=== PATIENT | female | born 1935 | race Caucasian/White ===

== ENCOUNTER 2018-10-08 18:22 | Inpatient (IN) | payer MEDICARE, MEDICAID ==
--- NOTE | ~2018-10-08 | PR ---
[place], [place] PROGRESS NOTE NAME: SEA MONTERO UNIT #: [id number] ROOM: 314 DOCTOR: WALLY SMITH MD BIRTHDATE: [birth year] DOS: 10/14/2018 INTERVAL NOTE CHIEF COMPLAINT: The patient smiled at me, but talked nonsensically." SUMMARY OF THE VISIT: The patient was attempted to be interviewed as she was eating her breakfast. She was eating without assistance and had most if not all of her breakfast gone. As I approached, she smiled readily. I did ask her, if she was feeling better and she continued to smile, but her response was aphasic and nonsensical. She did not appear to be in distress and if anything seemed happy and bright. MENTAL STATUS: She is alert and oriented to self, unclear place or time. Mood does seem to be more euthymic. Affect is more appropriate. There is no leona or hypomania noted. There are no overt psychotic symptoms. It is difficult to fully test memory because of her communication deficits. PLAN: I will go ahead and renew her p.r.n. Ativan, should she require intervention. I will increase her Namenda from 10 mg a day to 15 mg a day. Monitor and support, engage in individual and penaloza milieu activity, returning to the least restrictive environment when psychiatrically stable. WALLY SMITH MD CM:PNTRANS [id number] WALLY SMITH MD 10/14/18 1231 interface
--- NOTE | ~2018-10-08 | PR ---
[place], [place] PROGRESS NOTE NAME: SEA MONTERO UNIT #: [id number] ROOM: 314 DOCTOR: WALLY SMITH MD BIRTHDATE: [birth year] DOS: 10/10/2018 INTERVAL NOTE CHIEF COMPLAINT: The patient talked gibberish. SUMMARY OF THE VISIT: The patient was attempted to be interviewed as she was sitting in the dining area, eating breakfast. She did make eye contact and did attempt to engage in conversation, but most of that was nonsensical. There was no agitation or aggression. Nurses do note that the patient did have some periods of excessive verbalization that made no sense yesterday, almost clang like, but it was repetitive, yelling out of colors. MENTAL STATUS: She is alert and oriented to self, doubtful place and certainly not time. For the most part, her responses were nonsensical in nature. They were short and simple. There was no spontaneity and for the most part, she made little to no sense; however, there was no aggression or hostility noted. She does process conversation slowly and short term memory remains problematic. PLAN: I do view her verbalizations as somewhat pseudobulbar like and will go ahead and start her on Nuedexta 20-10 one daily. I will monitor for risks and benefits, continue to engage in individual and penaloza milieu activity, returning then to the least restrictive environment when psychiatrically stable. WALLY SMITH MD CM:PNTRANS [phone] WALLY SMITH MD 10/10/18 2340 interface
--- NOTE | ~2018-10-08 | WRIGHTHP ---
[place], [place] PATIENT HISTORY AND PHYSICAL EXAM NAME: SEA MONTERO UNIT #: [id number] ROOM: 314 DOCTOR: WALLY SMITH MD BIRTHDATE: [birth year] DOS: 10/09/2018 INITIAL PSYCHIATRIC EVALUATION CHIEF COMPLAINT: "Morning." HISTORY OF PRESENT ILLNESS: This is an 83-year-old white female who is a resident of the [facility] in [place]. The patient was sent here after repeatedly attacking staff, refusing meds and talking nonsensically. The patient has been very combative and very resistive to care, putting herself and others at substantial risk of harm. Attempts to redo her medications well at the [facility] have been ineffective and her behavior continues to spiral out of control necessitating an inpatient stabilization. PAST MEDICAL HISTORY: Remarkable for aphasia, coronary artery disease, dementia, displaced fracture of the right femur, hemorrhoid, CVA, myocardial infarction, transient ischemic attacks, hyperlipidemia, lactose intolerance, and neoplasm of the left breast. SOCIAL HISTORY: She does not smoke or use illicit drugs or drink alcohol. ALLERGIES: She does list allergies to being LACTOSE INTOLERANT. STRENGTHS: Ambulatory. WEAKNESSES: Cognitive decline, poor coping skills. MENTAL STATUS EXAMINATION: This morning was limited by her sedation. I did get her to open her eyes as I called her name repeatedly and touched her gently on the shoulder. She did mouth the word morning, beyond that she went back to sleep. ADMITTING DIAGNOSIS: Intermittent explosive disorder. PLAN: I have started her on Exelon patch 4.6 mg a day and Namenda 5 mg a day to impact positively on ADL maintenance, behavior and cognition. I also adjusted her Depakote level to 250 mg t.i.d. as her valproic acid level was very subtherapeutic at 4.4, reflecting the low dose that was given to her as well as her episodic noncompliance. We will engage in individual and penaloza milieu activity, returning to the least restrictive environment when psychiatrically stable. [place], [place] PATIENT HISTORY AND PHYSICAL EXAM NAME: SEA MONTERO UNIT #: [id number] ROOM: 314 DOCTOR: WALLY SMITH MD BIRTHDATE: [birth year] WALLY SMITH MD CM:HISPHYS:PATIENT HISTORY AND PHYSICAL EXAMINATION [phone] WALLY SMITH MD 10/09/18 1013 interface
--- NOTE | ~2018-10-08 | DS ---
[place], [place] DISCHARGE SUMMARY NAME: SEA MONTERO UNIT #: [id number] ROOM: 311 DOCTOR: WALLY SMITH MD BIRTHDATE: [birth year] DOS: 10/17/2018 CHIEF COMPLAINT: "Morning." HISTORY OF PRESENT ILLNESS: This is an 83-year-old white female who is a resident of the [facility] in [place], [place]. The patient was sent here to the [facility] after repeatedly attacking staff, refusing meds and talking nonsensically. She has been very combative and very resistive to care, putting both herself and others at substantial risk for harm. Attempts to redo her medications while at the [facility] have been ineffective and her behaviors continued to spiral out of control and necessitating an inpatient stabilization. SUMMARY OF HOSPITAL COURSE: The patient was started on Exelon patch 4.6 mg a day and Namenda 5 mg a day to impact positively on ADL maintenance, behavior and cognition. Her Depakote dose was increased to 250 mg t.i.d. as her initial valproic acid level was very subtherapeutic at 4.4. During the course of her stay, it became very evident that the patient had some uncontrollable verbalizations and excessive emotionality consistent with pseudobulbar affect. Nuedexta 20-10 was started and subsequently increased to twice daily with excellent results. With the Exelon increasing gradually then to its maximum dose during her stay at 13.3 mg a day and Namenda being brought up to a total dose of 15 mg a day, the patient substantially improved. She no longer was verbally or physically aggressive towards staff or others. She was pleasant and cooperative. She engaged readily in attempts to do her ADLs and eat. She did not exhibit sedation, somnolence, extrapyramidal symptoms or tardive dyskinesia and seems stable and ready to return back to the [facility]. MENTAL STATUS AT DISCHARGE: The patient is alert and oriented to self, unclear place or time. The patient is still somewhat dysphasic and has a hard time of communicating her needs, but pleasantly smiled upon approached and voiced no complaints when I gave her simple responses. There was no symptom suggestive of leona or hypomania. There were no gross psychotic symptoms. She does process at times slowly and short term memory remains problematic. DIAGNOSES AT DISCHARGE: Intermittent explosive disorder, Alzheimer's dementia and pseudobulbar affect. PLAN: All of her prescriptions have been e-scribed to [facility]. The patient is psychiatrically and medically stable and will return to the [facility]. [place], [place] DISCHARGE SUMMARY NAME: SEA MONTERO UNIT #: [id number] ROOM: 311 DOCTOR: WALLY SMITH MD BIRTHDATE: [birth year] WALLY SMITH MD CM:LUCILLE [phone] WALLY SMITH MD 10/17/18 1054 interface
[2018-10-08] MEDS ORDERED: CARDIZEM LA180 MG PO (18:24)
[2018-10-08] MEDS ORDERED: B121000 MCG/1 IM (18:26)
[2018-10-08] MEDS ORDERED: LEVEMIR FL100 UNIT/1 SQ (18:26)
[2018-10-08] MEDS ORDERED: PEPCID40 MG PO (18:27)
[2018-10-08] MEDS ORDERED: Lopressor25 MG PO (18:27)
[2018-10-08] MEDS ORDERED: QUESTRAN POWDE378 GM PO (18:30)
[2018-10-08] MEDS ORDERED: XARE15TA PO (18:31)
[2018-10-08] MEDS ORDERED: ASCORBIC ACID500 M2 PO (18:31)
[2018-10-08] MEDS ORDERED: FLORASTOR250 MG PO (18:32)
[2018-10-08] MEDS ORDERED: KEPPRA500 MG PO (18:32)
[2018-10-08] MEDS ORDERED: MAGOX 400400 MG PO (18:32)
[2018-10-08] MEDS ORDERED: MULTIVITAMINS1 EAC5 PO (18:33)
[2018-10-08] MEDS ORDERED: CALCIUM500 M1 PO (18:34)
[2018-10-08] MEDS ORDERED: GERI MUCIL PO (18:36)
[2018-10-08] MEDS ORDERED: POTASSIUM CHLO20 ME3 PO (18:37)
[2018-10-08] MEDS ORDERED: SODIUM BICARBO650 MG PO (18:38)
[2018-10-08] MEDS ORDERED: TYLENOL325 M1 PO ×2 (18:40→18:42)
[2018-10-08] MEDS ORDERED: LOMOTIL 2.5-0.1 EACH PO (18:42)
[2018-10-08] MEDS ORDERED: ATIVAN0.5 MG PO (18:43)
[2018-10-08] MEDS ORDERED: IMODIUM A-D2 M2 PO (18:44)
[2018-10-08] MEDS ORDERED: [UNRECOGNIZED DRUG - OTHER] R (18:44)
[2018-10-08 21:40] VITALS: BP 118/66
--- NOTE | 2018-10-08 21:40 | NUR ---
SEA MONTERO a 83 year old F admitted via stretcher from the ADMITTING as a voluntary admission. Arrived on unit at 2140PM. ALLERGIES: LACTOSE. Vital signs are: 97.9-81-17 118/66. THE POA--HER GAVE VERBAL PERMISSION FOR ADMISSION AND ALL following forms with stated understanding: Authorization For The Release of Medical Information, Clothing List, Consent to Voluntary Admission and Hospitalization, Consent and Release Forms/Receipt of Rights, Acknowledgement of Advance Directive Information, Behavioral Health Consent Form, and Informed Consent of Medications. Admitted under the services of Dr. LUIS BETHEA,[employer]. A search was conducted and hazardous articles were removed. Client was oriented to the unit. CLIENT AGGITATED UPON ARRIVAL, SPEECH NONSENSICAL, UNABLE TO ANSWER ANY QUESTIONS FOR ADMISSION. YELLING OUT AT STAFF. TAKEN TO SHOWER HYGIENE CARE CLIENT WAS BROUGHT IN FROM THE [facility] VIA FIRE RESCUE CLIENT INCONTINENTOF LIQUID STOOL. ENTIRE PERINIUM, AND BUTTOCKS FIRE ENGINE RED. COMBATIVE WITH ALL HANDS ON CARE. TONY STARKS
--- NOTE | 2018-10-08 21:50 | NUR ---
WHILE DOING SKIN ASSESSMENT, CLIENT HITTING, KICKING AND TRYING TO BITE STAFF. UNABLE TO OBTAIN PHOTOGRAPHS.
--- NOTE | 2018-10-08 21:58 | NUR ---
DR WRIGHT NOTIFIED OF MEDICAL CONSULT & MED REQ READY FOR REVIEW.
--- NOTE | 2018-10-08 22:06 | NUR ---
REFUSED PM MEDICATION INCLUDING PO ATIVAN. PREPPING IM ATIVAN TO CALM CLIENT FROM KICKING, HITTING STAFF CONTINUES TO REFUSE ANY PART OF ASSESSMENT PROCESS
--- NOTE | 2018-10-09 00:03 | NUR ---
RESTING BETTER. AWAITING MEDICAL TO ORDERS CLIENTS HOME MEDICATIONS.
--- NOTE | 2018-10-09 02:40 | NUR ---
SEA MONTERO [id number] Please refer to the physician's history and physical for past medical history, comorbid conditions, and allergies. Diagnosis: INTERMITTENT EXPLOSIVE DISORDER Reed Score: , WOUND DESCRIPTIONS: Wound Number: 1 Patient has several partial thickness areas noted to periarea and buttocks. Light amount of serosanguineous drainage. No odor noted. Surrounding skin is red and blanchable at time of assessment. Patient is incontient of urine and feces at time of assessment. Pericare provided. Patient is unable to state how these areas occured. Surface the patient is resting on: Proform SKIN PREVENTION RECOMMENDATION: 1. Pressure redistribution support surface as appropriate 2. Elevate heels 3. Remove boots/TEDS every shift and reapply 4. Head of bed 30 degrees as tolerated 5. Assess nutrition and hydration 6. Manage moisture 7. Avoid the use of containment devices while in bed 8. Use absorptive products on surfaces limit layers of linens on bed 9. Turn and reposition every 1-2 hours in bed and every 1 hour in chair as tolerated 10. Weight shifts every 15 minutes while up in chair 11. Offloading with pillows or device to keep heels elevated off bed 12. Monitor skin at least every shift 13. Inspect under medical devices twice a day WOUND TREATMENT RECOMMENDATIONS: Cleanse periarea and buttocks with soap and water and apply calazime every shift and prn for soiling. Wheelchair cushion when OOB.
--- NOTE | 2018-10-09 03:05 | NUR ---
NOTIFIED DR WRIGHT THAT ANSWERED PHONE CONCERNS THAT CLIENT TAKES IMMODIUM 5 TIMES A DAY WHILE AWAKE FOR CHRONIC DIARRHEA AND NEEDING WOUND CARE ORDERS FOR PERINEUM THAT IS EXCORIATED WITH FEW BLEEDING SPOTS.
--- NOTE | 2018-10-09 03:40 | NUR ---
24 HR chart check completed.
--- NOTE | 2018-10-09 05:49 | NUR ---
SLEPT POOR PAST 2330PM. SLEPT <5HRS
--- NOTE | 2018-10-09 06:45 | NUR ---
SWINGING AT STAFF. BIT SPOON AND SPIT MEDICATIONS OUT
[2018-10-09 07:28] LABS: BASO # 0.1 10*3/uL (0.0-0.1); BASO % 1.4 % (0.0-1.0); EOS # 0.4 10*3/uL (0.0-0.4); EOS % 4.8 % (1.0-4.0); HEMATOCRIT 36.9 % (37.0-47.0); HEMOGLOBIN 10.7 g/dl (12.0-16.0); LYMPH # 2.3 10*3/uL (1.3-4.4); LYMPH % 29.7 % (27.0-41.0); MEAN CELL VOLUME 89.1 fl (81.0-99.0); MEAN CORPUSCULAR HGB 25.8 pg (27.0-31.0); MEAN PLATELET VOLUME 9.4 fl (9.6-12.3); MONO # 0.8 10*3/uL (0.1-1.0); MONO % 10.2 % (3.0-9.0); NEUT # 4.1 10*3/uL (2.3-7.9); NEUT % 53.6 % (47.0-73.0); PLATELET COUNT AUTOMATED 390 10*3/uL (130-400); RED BLOOD COUNT 4.14 10*6/uL (4.10-5.10); RED CELL DISTRI WIDTH 15.9 % (0-14.5); WHITE BLOOD COUNT 7.6 10*3/uL (4.8-10.8)
[2018-10-09 07:56] LABS: ALBUMIN 2.4 gm/dl (3.1-4.5); ALKALINE PHOSPHATASE 105 U/L (45-117); BUN 22 mg/dl (7-24); CHLORIDE 111 mmol/L (98-107); CHOLESTEROL 103 mg/dL (<200); CREATININE 0.77 mg/dL (0.55-1.02); HDL CHOLESTEROL 40 mg/dl (40-60); LDL CHOLESTEROL 17 mg/dL (9-159); POTASSIUM 4.2 mmol/L (3.5-5.1); SGOT/AST 21 IU/L (3-35); SGPT/ALT 20 U/L (12-78); SODIUM 141 mmol/L (136-145); TRIGLYCERIDES 228 mg/dl (<150); VLDL CHOLESTEROL 46 mg/dL (6-40)
--- NOTE | 2018-10-09 08:00 | NUR ---
Treatment Plan meeting with Dr. Wheeler, RN, AT, SW and Traveling Electrician. Plan for discharge next week. Pt. is a current resident of [facility]. Will reach out to facility today to discuss discharge Planning.
[2018-10-09 08:02] VITALS: BP 123/65
[2018-10-09 08:05] LABS: INTERNATIONAL NORM RATIO 4.8 (2.0-3.5)
[2018-10-09 08:06] LABS: THYROID STIM HORMONE (HS) 0.885 uIU/ml (0.358-4.75); VALPROIC ACID (DEPAKENE) 4.4 ug/ml (50-100)
--- NOTE | 2018-10-09 08:08 | NUR ---
LAB CALLED CRITICAL INR LEVEL, MADE DR. BUCKLEY AWARE. STATES "OK".
[2018-10-09 08:45] LABS: VITAMIN D, 25-HYDROXY 11.1 ng/mL (30-100)
--- NOTE | 2018-10-09 09:40 | NUR ---
Treatment Plan meeting with Dr. Wheeler, RN, AT, SW and Child Development Consultant. Plan for discharge next week. Pt. came to [facility] from [facility]. Will reach out to facility today to discuss discharge Planning.
--- NOTE | 2018-10-09 09:47 | NUR ---
Clinical Updates faxed to [facility] [place].
--- NOTE | 2018-10-09 09:51 | NUR ---
Dr. Lopez notified of wound care recommendations.
--- NOTE | 2018-10-09 10:04 | NUR ---
Spoke with Tracy, Supply Chain Program Manager at [facility]. Pt. is Tar Worker Care at facility and is a Bed Hold. Pt. will return to the [facility] at discharge.
--- NOTE | 2018-10-09 11:46 | NUR ---
AM GROUP/MUSIC AND GAMES PT WAS PRESENT FOR GROUP AND BEGAN YELLING OUT, "NURSE!" AND "HELP!" I CAME TO PT AND SHE MISTOOK ME FOR A NURSE AND BEGAN SPEAKING NONSENSE. PT WAS TAKEN TO NURSES STATION FOR NURSE TO ADDRESS PT ISSUE. PT WAS RETURNED TO THE GROUP AND BEGAN YELLING OUT THE NAMES OF COLORS, "WHITE, BLUE, YELLOW..." PT THEN DOZED OFF.
--- NOTE | 2018-10-09 11:59 | NUR ---
Attempted to meet with pt this AM but pt was sleeping soundly.
--- NOTE | 2018-10-09 13:33 | NUR ---
PT CONFUSED, RESTLESS. PT YELLING OUT, SPEECH IS NONSENSICAL, PT HAS OCCASIONAL OUTBURSTS. PT REDIRECTED, PROVIDED WITH ACTIVITY AND LOW STIMULATION ENVIRONMENT TO REDUCE IRRITABILITY REDIRECTION EFFECTIVE FOR BRIEF TIME. PT IS NONSENSICAL, VERBAL RESPONSES NOT OFTEN APPROPRIATE TO CONTENT, PT IS ABLE TO FOLLOW SIMPLE VERBAL CUES. ST/LT MEMORY DEFICITS APPARENT. PT IS ORIENTED TO PERSON ONLY. MOOD IS LABILE. PT ENCOURAGED TO REST IN CHAIR IN QUIET ROOM. NO OVERT S/S OF ATTENDING TO INTERNAL STIMULI. WILL CONTINUE TO REORIENT PT TO PLACE, TIME, AND SITUATION. WILL REDIRECT NEEDED. WILL PROVIDE 1:1 FOR EMOTIONAL SUPPORT NEEDED. Q 15 MIN MONITORING PER POLICY FOR SAFETY. WILL MAINTAIN FALLING STAR PROGRAM FOR PT SAFETY.
--- NOTE | 2018-10-09 15:18 | NUR ---
PHYSICAL THERAPY Patient evaluated on 3, full evaluation to follow. Continue with PT as per plan of care with fall, unit three, mod (A) x 2 and acute debility precautions. Return to nursing home care as prior. PAtient is high complexity via chart review, tests and evaluation: 04451. Thank you for this referral. Carolann Belcher,PT
--- NOTE | 2018-10-09 15:23 | NUR ---
Occupational Therapy evaluation completed on 3 with full evaluation. Precautions include fall risk,chair,bed alarm,impaired cognition, +2 transfer assist, assist with all ADls,aphasia,high complexity level 95170 via testing , evaluation and chart review. Recommend OT per pOC and return to LTC upon d/c. Thank you for this referral. Rosita Flores OTR/l
--- NOTE | 2018-10-09 15:47 | NUR ---
PM GROUP/[employer] PT IS UNABLE TO ATTEND GROUP THERAPY AT THIS TIME DUE TO COGNITIVE IMPAIRMENT AND HIGH LEVEL OF CONFUSION
[2018-10-09 17:34] LABS: BILIRUBIN NEGATIVE (NEGATIVE); BLOOD 2+ (NEGATIVE); CLARITY SL CLOUDY (CLEAR); COLOR YELLOW (YELLOW); GLUCOSE NEGATIVE (NEGATIVE); KETONE NEGATIVE (NEGATIVE); LEUKO ESTERASE 2+ (NEGATIVE); NITRITE NEGATIVE (NEGATIVE); PH 5.5 (5.0-9.0); SPECIFIC GRAVITY 1.025 (1.005-1.030); UROBILINOGEN 0.2 E.U./dl (0.2-1.0)
[2018-10-09 17:41] LABS: BACTERIA 4+; WBC TNTC wbc/hpf (0-5)
[2018-10-09 17:42] LABS: EPITHELIAL CELLS 16-20; RBC 31-40 rbc/hpf (0-2)
--- NOTE | 2018-10-09 17:58 | NUR ---
DR. BUCKLEY NOTIFIED OF UA RESULTS. STATES HE WILL TAKE A LOOK AT THEM. WITNESSED BY 2ND NURSE
[2018-10-09 19:47] VITALS: BP 122/68
--- NOTE | 2018-10-09 23:00 | NUR ---
P: INCREASED ANXIETY, AGITATION, AEB: YELLING OUT AND SCREAMING NONSENSICAL STATEMENTS, I: REDIRECT, TOILET, SNACK OFFERED, T.V ROOM, LOW STIMULATION, 1:1 R: ALL INEFFECTIVE PT CONTINUED TO YELL OUT AND SCREAM AT STAFF AND OTHERS, PT GIVEN ATIVAN TO ASSIST IN DECREASING ANXIETY P: CONTINUE TO MONITOR 15 MIN CHECKS, PT IS CURRENTLY IN BED RESTING QUIETLY ATIVAN EFFECTIVE. NO SI OR HI NOTED.
--- NOTE | 2018-10-10 03:06 | NUR ---
24 HR chart check completed.
--- NOTE | 2018-10-10 04:50 | NUR ---
Upon discharge recommend patient to follow up for wound care in outpatient setting continue current wound care orders at discharging facility.
--- NOTE | 2018-10-10 07:50 | NUR ---
PHYSICAL THERAPY Patient seen this am for therapy visit and was sitting up in activity room Cindy chair upon therapist arrival. OT fast food sales assistant was present for observation only during SPEECH THERAPIST EARLY INTERVENTION visit. Patient was very tired and confused this session, requiring multiple v/c's for encouragement in completing all therapy task. Patient transfered sit to stand MAX A x 2 with use of B UE support at handrail, but was only able to complete single transfer due to quick onset of fatigue. Patient did attempt 2 addititonal transfers, but unable to complete and remained in Cindy chair with lap tray and body alarm under [facility] staff Supervision. Will continue per POC as tolerated, total treatment time 13 minutes. Aly Correia, SPEECH THERAPIST EARLY INTERVENTION
[2018-10-10 07:51] VITALS: BP 133/75
--- NOTE | 2018-10-10 08:00 | NUR ---
Treatment Plan meeting with Dr. Wheeler, RN, AT and Waste/Materials Exchange Specialist. Plan for discharge next week. Pt. will return to the [facility].
--- NOTE | 2018-10-10 08:10 | NUR ---
OT NOTE Pt was seen this A.M. 1:1 for 25 minute OT session with SMALL BATTERY PLATE ASSEMBLER and nursing staff present for observation only. Upon arrival pt was sitting semi reclined in jairon chair in the dining room. Pt identified by name and on wristband due to being unable to understand her speech. Pt was taken out into the hallway where she completed one sit to stand from chair level with maxA X 2 and max verbal prompts for sequencing and following commands. Attempted to complete a second sit to stand and pt became quickly aggitated and would not participate or follow commands. Pt's breakfast tray arrived which she required maxA for set up of tray. Pt was presented with one item at a time (plate and drink) no tray present to avoid distractions. Pt completed self feeding with supervision while managing all food with a fork and drinks with a straw. Pt did present with a R lateral lean throughout self feeding that pt was able to correct with one verbal prompt. Pt was left sitting upright in the jairon chair in the dining room with lap tray in place, body alarm on for safety, and under [facility] staff supervision. Continue with rec D/C plan to return to LTC. SOHA Mcnamara/Ha
--- NOTE | 2018-10-10 11:49 | NUR ---
AM GROUP/EXERCISE AND BRAIN GAMES PT IS UNABLE TO ATTEND OR PARTICIPATE IN GROUP AT THIS TIME DUE TO COGNITIVE IMPAIRMENT AND YELLING OUT A DISRUPTION TO PEERS.
--- NOTE | 2018-10-10 13:20 | NUR ---
SPOKE WITH DR. BUCKLEY AT [phone] RE: PT PT/INR AND UA GOMEZ RESULTS NO FURTHER ORDERS AT THIS TIME.
--- NOTE | 2018-10-10 14:10 | NUR ---
P: PT INCREASINGLY ANXIOUS, AGITATED. PT INTRUSIVE TO MANJINDERI YELLING OUT, CONFUSION AND SHORT TERM/SENIOR CARE MEMORY DEFICITS NOTED. PT REFUSED PART OF AM PO MEDS, SPITTING OUT APPLESACE I: PT ALERT TO PERSON ONLY, CONFUSION AND SHORT TERM MEMORY DEFICITS NOTED. PT RE-ORIENTED TO PLACE AND TIME. PT MED COMPLIANT WITH DIFFICUTY, UNABLE TO PROVIDE MED EDUCATION D/T COGNITION. STAFF PROVIDED EMOTIONAL SUPPORT AND 1:1 FOR PT TO VOICE FEELINGS, PROVIDED LOW STIMULATION ENVIRONMENT FOR PT TO CALM. OFFERED DIVERSIONAL ACTIVITIES SUCH MUSIC AND BABY DOLLS. PT UP TO GERICHAIR D.T UNSTEADY GAIT AND INABILITY TO AMBULATE INDEPENDENTLY. R: PT CONTINUES TO YELL OUT INTERMITTENLY THROUGHOUT THE DAY. P: MONITOR PT BEHAVIORS ON Q15 MIN SAFETY CHECKS, ENCOURAGE MED COMPLIANCE, PROVIDE EMOTIONAL SUPPORT AND 1:l FOR PT TO VOICE FEELINGS, PROVIDE LOW STIMUALTION ENVIRONMENT FOR PT TO CALM.
--- NOTE | 2018-10-10 15:41 | NUR ---
PM GROUP/LEISURE INTERESTS PT IS UNABLE TO ATTEND GROUP THERAPY AT THIS TIME DUE TO COGNITIVE IMPAIRMENT
[2018-10-10 20:00] VITALS: BP 138/72
--- NOTE | 2018-10-11 05:08 | NUR ---
24 HR chart check completed.
--- NOTE | 2018-10-11 07:05 | NUR ---
PHYSICAL THERAPY Patient seen this am for therapy visit and was sitting in activity room Cindy chair upon therapist arrival. OT engineering assistant was present this morning for observation only during MILK POWDER GRINDER visit. Patient required mutltiple verbal / tactile cues to complete all treatment, however demonstrated increased difficulty with focus on task in performing seated B LE therex. Patient not able to follow therapist commands and was AAROM, all planes, x 10 reps each. Patient was also a little agitated with lap tray in front of her and repeatedly kept pushing on it as if to remove. Patient calmed down once therapist removed the tray so patient could complete sit to stand transfer, MAX A x 2, only tolerating < 10 seconds static stand at rail. Patient unable to attempt additional transfers at this time due to therapist inability to redirect patient. Patient remained in Cindy chair with lap tray and body alarm, in activity room, under [facility] staff Supervsion. Will continue per POC as tolerated, total treatment time 12 minutes. Aly Correia, MILK POWDER GRINDER
[2018-10-11 07:35] VITALS: BP 135/69
--- NOTE | 2018-10-11 07:55 | NUR ---
DR CALHOUN ON UNIT TO SEE PATIENT
--- NOTE | 2018-10-11 08:00 | NUR ---
Treatment Plan meeting with Dr. Wheeler, RN, AT, SW and City Bus Driver. Plan for discharge next week. Pt. will return to the [facility].
--- NOTE | 2018-10-11 08:00 | NUR ---
OT NOTE Pt was seen this A.M. 1:1 for 25 minute OT session with nursing staff present for observation only. Upon arrival pt was sitting upright in the jairon chair in the dining room. Pt identified by name and on wristband. Pt was taken out into the hallway where she completed one sit to stand with maxA X 2 and constatn verbal prompts for following commands and attention to task. Pt became aggitated when other stands were atempted. Pt's breakfast tray arrived whcih she required maxA for set up of tray. Pt was given a plate and one drink to avoid distraction. Pt was able to complete self feeding using utensils and managed all drinks with supervision. Pt was left sitting upright in the jairon chair in the dining room with lap tray in place, body alarm on for safety, and under U staff supervision. Continue with rec D/C plan to return to LTC. SOHA Mcnamara/Ha
[2018-10-11 08:32] LABS: INTERNATIONAL NORM RATIO 3.5 (2.0-3.5)
--- NOTE | 2018-10-11 09:35 | NUR ---
SPOKE WITH DR. BUCKLEY AT [phone] RE: PT PT/INR RESULTS, NO FURTHER ORDERS AT THIS TIME.
--- NOTE | 2018-10-11 12:48 | NUR ---
AM GROUP/MUSIC AND LIGHT THERAPY PT IS UNABLE TO PARTICIPATE IN GROUP AT THIS TIME DUE TO COGNITIVE IMPAIRMENT AND HIGH LEVEL OF CONFUSION.
--- NOTE | 2018-10-11 15:48 | NUR ---
PM GROUP/MISTY PT ATTENDED AFTERNOON GROUP BUT IS UNABLE TO PARTICIPATE DUE TO COGNITIVE IMPAIRMENT. PT CONTINUALLY YELLED OUT NONSENSICAL WORDS LIKE, "TERSE", BILLA NOT", ETC
--- NOTE | 2018-10-11 16:23 | NUR ---
Clinical Updates faxed to [facility].
--- NOTE | 2018-10-11 16:41 | NUR ---
P: PT INTRUSIVE TO MILEUI THROUGHOUT THE DAY, YELLING OUT. PT IRRITABLE AND ANXIOUS AT TIMES. PT REFUSED AM PO MEDS I: PROVIDED EMOTIONAL SUPPORT AND 1:1 FOR PT TO VOICE FEELINGS. ENCOURAGED MED COMPLIANCE. PROVIDED LOW STIMUALTION ENVIRONEMNT FOR PT TO CALM, OFFERED BABY DOLL AND MUSIC. PROVIDED ADL CARE R: PT ALERT TO PERSON ONLY, CONFUSION AND SHORT TERM MEMORY DEFICITS NOTED PER PT BASELINE. MED EDUCATION INEFFECTIVE, PT CONTINUED TO REFUSE AM PO MEDS. P: MONITOR PT BEHAVIORS ON Q15 MIN SAFETY CHECKS, ENCOURAGE MED COMPLIANCE, CONTINUE TO OFFER EMOTIONAL SUPPORT AND 1:1 FOR PT TO VOICE FEELINGS.
[2018-10-11 20:00] VITALS: BP 142/74
[2018-10-11 21:06] LABS: LEVETIRACETAM (KEPPRA) 716936 27.1 ug/mL (10.0-40.0)
--- NOTE | 2018-10-12 03:05 | NUR ---
P-YELLING OUT, CONFUSION. PATIENT ALERT WITH CONFUSION. PATIENT WITH SHORT TERM AND LONG MEMORY DEFICITS. PATIENT WITH NO HALLUCINATIONS OR DELUSIONS. PATIENT WITH NO SUICIDAL OR HOMICIDAL IDEATIONS. PATIENT YELLING OUT WITH NONSENSICAL SPEECH. I-REDIRCTION WITH 1:1 THERAPEUTIC INTERVENTIONS AND PRESENT REALITY. EDUCATE AND ENCOURAGE MEDICATION COMPLIANCE R-PATIENT MEDICATION COMPLIANT WITH ENCOURAGEMENT. PATIENT SHOWERED AT HS WITH ASSIST X 2. PATIENT WITH ATTEMPTS TO COMMUNICATE WITH PEERS IN DINING AREA USING OUTBURST OF ONE WORD RESPONSES OF "DOCTOR" "HERPES" "THE BROWN". PATIENT WITH WORD SALAD, MOOD IS LABILE, THOUGHT PROCESS IS TANGENTIAL AND CONFUSED. PATIENT DISRUPTIVE AT TIMES IN DINING AREA AROUND PEERS. P-CONTINUE TO ENCOURGAGE MEDICATION COMPLIANCE, CONTINUE TO PRESENT REALITY, ENCOURAGE GROUP THERAPY WHILE AWAKE
--- NOTE | 2018-10-12 04:00 | NUR ---
24 HR chart check completed.
--- NOTE | 2018-10-12 06:15 | NUR ---
PATIENT SLEPT >6 HOURS OF INTERRUPTED SLEEP THROUGHOUT SHIFT. Q 15 MINUTE CHECKS MAINTAINED
[2018-10-12 07:51] LABS: INTERNATIONAL NORM RATIO 2.5 (2.0-3.5)
[2018-10-12 08:00] VITALS: BP 138/69
--- NOTE | 2018-10-12 11:42 | NUR ---
AM GROUP/EXERCISES/COPING SKILLS MISTY PT ATTENDED BUT SLEPT ENTIRE GROUP. PT SLEEP TALKING BUT THIS STAFF UNABLE TO UNDERSTAND WHAT PT SAYING. PT WILL CONTINUE TO ATTEMND GROUP AND BE ENCOURAGED OT PARTICIPATE TO BEST OF PT ABILITY.
--- NOTE | 2018-10-12 15:31 | NUR ---
P: RESISTIVE WITH HOC, RESISTIVE WITH MEDICATIONS, POOR COGNITIVE COMMUNICATION I: CALM SOOTHIN VOICE, INFORM PT OF CARE BEING PROVIDED, ENCROUGE PT TO TAKE MEDICATIONS TO ASSIST IN WELL BEING, ASSIST PT TO FIND APPROPRIATE WORDS WHEN COMMUNICATING., R: PT SCRATCHED AT STAFF WITH HOC WHEN PROVIDING MAAME CARE, MAAME AREA IS RED AND TENDER DUE TO INCONTNENCE, BARRIER APPLIED P: CONTINUE TO REDIRECT NEEDED, PROVIDE CARE Q2 HOUR AND PRN. PT HAS NO SI OR HI NOTED, POOR COGNITION MAKES HER UNABLE TO MAKE NEEDS OR WANTS KNOWN, REQUIRES 2 ASSIST WITH HOC DUE TO INABILITY TO ASSIST WITH CARE CONTINUE TO MONITOR 15 MIN CHECKS AND ECNROUGAGE APPOPRIATE MILIEU ACTIVITIES
--- NOTE | 2018-10-12 15:40 | NUR ---
PT NOTED TO HAVE MODERATE AMOUNT OF BRIGHT RED BLOOD WITH DIAHRREA TODAY, RECTUM TENDER TO TOUCH. DR GONZALEZ UPDATED ON SAME WITH REQUEST TO RESTART ANUSUL FROM HOME MEDICATIONS.
--- NOTE | 2018-10-12 16:05 | NUR ---
PM GROUP/GAMES PT ATTENDED FIRST 20 MINUTES OF GROUP BUT BEGAN TO YELL OUT. THIS STAFF REMOVED PT FROM ACTIVITY ROOM DUE TO BECOMING A DISTRACTION TO SOME PT'S. PT RETURNED TOWARDS THE END OF GROUP TO OBSERVE. PT WILL CONTINUE TO BE ENCOURAGED TO ATTEND AND PARTICIPATE TO BEST OF ABILITY IN FUTURE GROUP SESSIONS.
[2018-10-12 20:00] VITALS: BP 124/68
--- NOTE | 2018-10-12 22:15 | NUR ---
MEDICATION COMPLIANT WITH LOTS OF ENCOURAGEMENT. CLIENT HARD OF HEARING WHICH CAUSES HER IRRITABILITY TO INCREASE. TALKING INTO CLIENTS EARS SUCCESSFUL. REFUSED ALL ORAL CARE INCLUDING HAVING HER DENTURES REMOVED. UNABLE TO PARTICIPATE IN 1:1 HER WORD SALAD AND NONSENSICAL SPEECH PREVENT PROPER UNDERSTANDING OF HER NEEDS BY STAFF. WILL CONTINUE TO MONITOR Q 15 MINUTES FOR SAFETY AND TURN Q 2 HOURS AND PRN
--- NOTE | 2018-10-13 02:06 | NUR ---
FINALLY FELL ASLEEP IN GERICHAIR IN QUIET ROOM
--- NOTE | 2018-10-13 05:15 | NUR ---
24 HR chart check completed.
--- NOTE | 2018-10-13 06:07 | NUR ---
SLEPT POOR TILL AROUND 4AM. SLEPT IN CHAIR. MOVED SELF AROUND
[2018-10-13 07:23] VITALS: BP 126/70
[2018-10-13 07:48] LABS: HEMATOCRIT 39.6 % (37.0-47.0); HEMOGLOBIN 11.8 g/dl (12.0-16.0)
[2018-10-13 08:21] LABS: INTERNATIONAL NORM RATIO 1.4 (2.0-3.5)
--- NOTE | 2018-10-13 10:06 | NUR ---
DR. BACON ON UNIT TO ASSESS PT, UPDATE PROVIDED.
--- NOTE | 2018-10-13 15:58 | NUR ---
P: PT INTRUSIVE/DISRUPTIVE TO MUILEUI BY YELLING OUT. PT RESISTIVE TO MEDS. PT IRRITABLE AT TIMES. PT SPEECH NON-SENSICAL. PT RESISTIVE WITH HOC YELLING OUT. I: ENCOURAGED MED COMPLIANCE, PROVIDED EMOTIONAL SUPPORT AND 1:1, OFFERED DIVERSIONAL ACTIVITES. PROVIDE STEP BY STEP INSTRUCTIONS DURING CARE, PROVIDE LOW STIMULATION ENVIRONMENT FOR PT TO CALM R: PT CONTINUES TO YELL OUT INTERMITTENTLY, UNABLE TO PROVIDE MED EDUCATION D/T COGNITION, 1:1 INEFFECTIVE. PT ALERT TO PERSON ONLY, CONFUSION AND SHORT TERM MEMORY DEFICITS NOTED PER PT BASELINE. NO HALLUCINATIONS OR DELUSIONS NOTED. NO SUICIDAL THOUGHTS OR BEHAVIORS NOTED. PT UP TO GERICHAIR, REQUIRES 2 STAFF ASSIST FOR CARE. PT INCONTINENT OF BOWEL AND BLADDER, CARE PROVIDED NEEDED. P: PLAN IS TO MONITOR PT BEHAVIORS ON Q15 MIN SAFETY CHECK, ENCOURAGE MED COMPLIANCE, PROVIDE LOW STIMULATION ENVIRONMENT FOR PT TO CALM, PROVIDE STEP BY STEP INSTRUCTIONS DURING CARE.
[2018-10-13 19:05] VITALS: BP 128/67
--- NOTE | 2018-10-13 23:00 | NUR ---
24 HR chart check completed.
--- NOTE | 2018-10-14 02:45 | NUR ---
P-YELLING OUT, CONFUSION. PATIENT ALERT WITH CONFUSION. PATIENT WITH SHORT TERM AND LONG MEMORY DEFICITS. PATIENT WITH NO HALLUCINATIONS OR DELUSIONS. PATIENT WITH NO SUICIDAL OR HOMICIDAL IDEATIONS. PATIENT YELLING OUT WITH NONSENSICAL SPEECH. I-REDIRCTION WITH 1:1 THERAPEUTIC INTERVENTIONS AND PRESENT REALITY. EDUCATE AND ENCOURAGE MEDICATION COMPLIANCE R-PATIENT MEDICATION COMPLIANT WITH ENCOURAGEMENT. PATIENT WITH WORD SALAD, MOOD IS LABILE, THOUGHT PROCESS IS TANGENTIAL AND CONFUSED. PATIENT DISRUPTIVE AT TIMES IN DINING AREA AROUND PEERS. NOURISHMENT AND FLUIDS PROVIDED. PATIENT CONTINUES ON CEFTIN FOR +UTI. NO ADVERSE REACTION. P-CONTINUE TO ENCOURGAGE MEDICATION COMPLIANCE, CONTINUE TO PRESENT REALITY, ENCOURAGE GROUP THERAPY WHILE AWAKE
--- NOTE | 2018-10-14 05:58 | NUR ---
PATIENT SLEPT >6 HOURS OF UNINTERRUPTED SLEEP THROUGHOUT SHIFT. Q 15 MINUTE CHECKS MAINTAINED
--- NOTE | 2018-10-14 07:30 | NUR ---
PHYSICAL THERAPY Patient was semi reclined in activity room Cindy chair upon therapist arrival and unable to arouse for treatment at this time. Will continue per POC as able. Aly Correia, TIMBER SIZER
--- NOTE | 2018-10-14 07:47 | NUR ---
OT NOTE Pt was seen this A.M. 1:1 for 17 minute OT session with ASSOCIATE PROFESSOR OF HISTORY and nursing staff present for observation only. Upon arrival pt was asleep in the jairon chair in the dining room. Pt identified by name and . When requesting for pt to participate in therapy pt would close her eyes and not respond. However when pt's breakfast tray arrived pt aroused easily and was sat upright in jairon chair for safety with self feeding. Pt required maxA for set up of tray. Pt was then able to complete self feeding using utensils with supervision and managed all cups using B hands with supervision. Pt was left sitting upright in the jairon chair in the dining room with body alarm on for safety and under U staff supervision. Continue with rec D/C plan to return to LTC. SOHA Mcnamara/Ha
[2018-10-14 07:50] VITALS: BP 124/68
--- NOTE | 2018-10-14 08:00 | NUR ---
Treatment Plan meeting with Dr. Wheeler, RN, AT, SW and Center Administrator. Plan for discharge Sun/Sunday. Pt. will return to [facility].
--- NOTE | 2018-10-14 10:20 | NUR ---
DR. BACON ON UNIT TO ASSESS PATIENT.
--- NOTE | 2018-10-14 11:40 | NUR ---
AM GROUP/EXERCISE AND WRITING PT WAS PRESENT FOR MORNING GROUP THERAPY SLEEPING RECLINED IN A DIONICIO CHAIR. PT DID NOT AWAKEN DURING GROUP.
--- NOTE | 2018-10-14 15:46 | NUR ---
PM GROUP/MUSIC AND TRIVIA PT DID NOT ATTEND AFTERNOON GROUP THERAPY. PT WAS IN BED RESTING.
--- NOTE | 2018-10-14 16:29 | NUR ---
Clinical Updates faxed to [facility].
--- NOTE | 2018-10-14 17:48 | NUR ---
P: SLIGHTLY IRRITABLE MOOD, HITS STAFF DURING HANDS ON CARE. I: ONE ON ONE AND REDIRECTION DURING HANDS ON CARE. R: EFFECTIVE; PATIENT IS ALERT TO PERSON WITH CONFUSION; LONG/SHORT TERM MEMORY DEFICITS NOTED. MOOD IS IRRITABLE, PHYSICAL AGGRESSION WITH HANDS ON CARE. NO VOICED STATEMENT OF HI/SI OR PAIN; NO RESPONSE TO INTERNAL STIMULI OBSERVED. 1-2 PERSON ASSIST WITH ACTIVITIES OF DAILY LIVING, INCONTINENT OF BOWEL AND BLADDER. SET UP FOR MEALS, INTAKES VARIES WITH ENCOURAGEMENT TO EAT/DRINK. MEDICATION COMPLIANT WITH MUCH ENCOURAGEMENT. Q 15 MINUTE SAFETY CHECKS MAINTAINED. WITHDRAWN, ATTENTED GROUP SESSION; SLEEPING IN DIONICIO CHAIR RECLINED. P: CONTINUE TO MONITOR FOR AGGRESSION; PROVIDE ONE ON ONE AND REDIRECTION NEEDED.
[2018-10-14 20:00] VITALS: BP 120/62
--- NOTE | 2018-10-14 22:20 | NUR ---
P-CONFUSION. PATIENT ALERT WITH CONFUSION. PATIENT WITH SHORT TERM AND LONG MEMORY DEFICITS. PATIENT WITH NO HALLUCINATIONS OR DELUSIONS. PATIENT WITH NO SUICIDAL OR HOMICIDAL IDEATIONS. PATIENT WITH NONSENSICAL SPEECH. I-REDIRCTION WITH 1:1 THERAPEUTIC INTERVENTIONS AND PRESENT REALITY. EDUCATE AND ENCOURAGE MEDICATION COMPLIANCE R-PATIENT MEDICATION COMPLIANT WITH ENCOURAGEMENT. PATIENT WITH WORD SALAD, MOOD IS LABILE, THOUGHT PROCESS IS TANGENTIAL AND CONFUSED. PATIENT DISRUPTIVE IN ROOM OCCASIONALLY. NOURISHMENT AND FLUIDS PROVIDED. PATIENT CONTINUES ON CEFTIN FOR +UTI. NO ADVERSE REACTION. P-CONTINUE TO ENCOURGAGE MEDICATION COMPLIANCE, CONTINUE TO PRESENT REALITY, ENCOURAGE GROUP THERAPY WHILE AWAKE
--- NOTE | 2018-10-15 04:10 | NUR ---
24 HR chart check completed.
--- NOTE | 2018-10-15 06:56 | NUR ---
PATIENT SLEPT >7 HOURS OF UNINTERRUPTED SLEEP THROUGHOUT SHIFT. Q 15 MINUTE CHECKS MAINTAINED
--- NOTE | 2018-10-15 07:10 | NUR ---
PHYSICAL THERAPY Patient was sitting semi reclined in activity room Cindy chair upon therapist arrival and presented with increased Lethargic behaviour. Patient unable to follow therapist commands and unable to keep her eyes open. Patient not appropriate for therapy at this time. Will continue per POC as able. Aly Correia, DIRECTOR OF PARTNER MARKETING
[2018-10-15 07:42] VITALS: BP 129/70
--- NOTE | 2018-10-15 07:56 | NUR ---
OT NOTE Pt was seen this A.M. 1:1 for 13 minute OT session with nursing staff present for observation only. Upon arrival pt was sitting semi reclned in the jairon chair in the dining room. Pt identified by name and on wristband. Pt was taken out to the hallway where sit to stand transfer was attempted. Pt became quickly aggitated and shut her eyes. Pt's breakfast tray arrived which she required maxA for set up of tray and was able to complete self feeding with supervision. Pt only had a few bites this session and then shut her eyes and would eat no more. Pt was left sitting upright in the jairon chair with body alarm on for safety and under [facility] staff supervision. Continue with rec D/c plan to return to LTC. SOHA Mcnamara/Ha
--- NOTE | 2018-10-15 08:00 | NUR ---
Treatment Plan meeting with Dr. Wheeler, RN, AT, and Rug Cleaner Hand. Plan for discharge . Pt. will return to [facility].
--- NOTE | 2018-10-15 11:46 | NUR ---
AM GROUP/EXERCISE AND DISCUSSION PT WAS PRESENT FOR MORNING GROUP THERAPY SLEEPING IN A DIONICIO CHAIR. PT DID NOT AWAKEN DURING GROUP. PT IS UNABLE TO PARTICIPATE AT THIS TIME DUE TO COGNITIVE IMPAIRMENT
--- NOTE | 2018-10-15 17:14 | NUR ---
PM GROUP/MUSIC TRIVIA PT DID NOT ATTEND PM GROUP. PT IN BED RESTING AT THIS TIME. PT WILL CONTINUE TO BE ENCOURAGED TO ATTEND AN DPARTICIPATE IN FUTRUE GROUP SESSIONS.
--- NOTE | 2018-10-15 19:50 | NUR ---
P: AGGRESSION WITH HANDS ON CARE. I: PROVIDE ONE ON ONE AND REDIRECTION R: INEFFECTIVE DURING HANDS ON CARE. PATIENT IS ALERT TO SELF WITH CARE. UNABLE TO VOICE NEEDS. CHECKS AND CHANGED Q 2 HRS FOR TOILETING NEEDS. MOOD IS IRRITABLE/AGITATED DURING HAND ON CARE. NON COMPLAINT WITH MEDICATION WITH MUCH ENCOURAGEMENT TO TAKE MEDICINE. PATIENT HITTING NURSE AND SPIT OUT MEDICATION. SPACE PROVIDE AND EFFECTIVE. 2 PERSON ASSIST WITH ACTIVITIES OF DAILY LIVING, INCONTINENT OF BOWEL AND BLADDER, SET UP FOR MEALS, INTAKE ARE FAIR WITH ADEQUATE FLUIDS. UP IN DIONICIO CHAIR FOR COMFORT. P: CONTINUE TO MONITOR MOOD AND AGGRESSION; PROVIDE ONE ON ONE AND REDIRECTION NEEDED.
[2018-10-15 20:34] VITALS: BP 112/72
--- NOTE | 2018-10-15 20:49 | NUR ---
EVENING/BINGO PT CHOSE TO REMAIN IN BED SLEEPING AT THIS TIME. PT WILL CONTINUE TO BE ENCOURAGED TO ATTEND AND PARTICIPATE IN FUTURE GROUP SESSIONS.
--- NOTE | 2018-10-16 02:10 | NUR ---
P- CONFUSION, MEDICATION NON-COMPLIANCE. I- ASSESS MOOD, ORIENTATION, AND BEHAVIOR. PROVIDE 1:1 WITH EMOTIONAL SUPPORT NEEDED. ENCOURAGE MEDICATION COMPLIANCE AND EDUCATE. MONITOR SLEEP. R-PATIENT ALERT AND ORIENTED TO SELF, CONFUSED IN ALL OTHER AREAS. MOOD ANGRY/IRRITABLE. PT BECOMES AGITATED DURING INTERACTIONS WITH STAFF, YELLS OUT AND COVERS FACE WITH A BLANKET, SPEECH NONSENSICAL. 1:1 WITH THERAPEUTIC INTERVENTIONS INEFFECTIVE IN CALMING PATIENT. PT TOOK ONE BITE OF CRUSHED MEDICATIONS AND REFUSED THE REST, THROWING IT ON THE FLOOR. UNABLE TO PROVIDE MEDICATION EDUCATION DUE TO COGNITION. NO SI/HI AND HALLUCINATIONS VOICED, NO NOTED RESPONDING TO INTERNAL STIMULI. NO PHYSICAL COMPLAINTS VOICED. ALL NEEDS ANTICIPATED BY STAFF. PT CURRENTLY LAYING DOWN WITH EYES CLOSED, RESPIRATIONS EASY AND REGULAR, NO SIGNS OR SYMPTOMS OF DISTRESS NOTED. P-CONTINUE TO MONITOR MOOD AND BEHAVIORS. PRESENT REALITY AND REDIRECT NEEDED. ENCOURAGE MEDICATION COMPLIANCE AND EDUCATE. MAINTAIN Q 15 MIN CHECKS.
--- NOTE | 2018-10-16 05:59 | NUR ---
24 HOUR CHART CHECK COMPLETED.
--- NOTE | 2018-10-16 06:06 | NUR ---
PATIENT OBSERVEDON Q 15 MIN CHECKS TO HAVE SLEPT APPROX 7 HOURS WITH NO AWAKENINGS OR SIGNS AND SYMPTOMS OF DISTRESS NOTED.
--- NOTE | 2018-10-16 06:27 | NUR ---
PATIENT REFUSED AM MEDICATION AFTER X3 ATTEMPTS, UNABLE TO EDUCATE DUE TO COGNITION.
--- NOTE | 2018-10-16 06:35 | NUR ---
SEA MONTERO [id number] Please refer to the physician's history and physical for past medical history, comorbid conditions, and allergies. Diagnosis: INTERMITTENT EXPLOSIVE DISORDER Reed Score: 13,MODERATE RISK WOUND DESCRIPTIONS: Wound Number: 1 Patient has several red blanchable areas noted to periarea and buttocks. No drainage noted at time of assessment. No odor noted. Patient is incontient of urine at time of assessment. Pericare provided. Patient is unable to state how these areas occured. Surface the patient is resting on: Proform SKIN PREVENTION RECOMMENDATION: 1. Pressure redistribution support surface as appropriate 2. Elevate heels 3. Remove boots/TEDS every shift and reapply 4. Head of bed 30 degrees as tolerated 5. Assess nutrition and hydration 6. Manage moisture 7. Avoid the use of containment devices while in bed 8. Use absorptive products on surfaces limit layers of linens on bed 9. Turn and reposition every 1-2 hours in bed and every 1 hour in chair as tolerated 10. Weight shifts every 15 minutes while up in chair 11. Offloading with pillows or device to keep heels elevated off bed 12. Monitor skin at least every shift 13. Inspect under medical devices twice a day WOUND TREATMENT RECOMMENDATIONS: d/c calazime Cleanse periarea and buttocks with soap and water and apply hydraguard every shift and prn for soiling. Continue wheelchair cushion when oob.
--- NOTE | 2018-10-16 07:05 | NUR ---
PHYSICAL THERAPY Patient seen this am for therapy visit and was sitting semi reclined in activity room Cindy chair upon therapsit arrival. OT business support assistant was present for observation only during EQUIPMENT OPERATION INSTRUCTOR visit. Patient presented with decreased cognition this session, requiring multiple v/c's to complete all therpay task. Patient performed seated B LE therex, AAROM due to cognition, x 10 reps each, then completed sit to stand transfer at rail, MAX A X 2 and unable to maintain standing tolerance < 10 seconds x 3 trials. Patient returned to Cindy chair with body alarm in activity room under [facility] staff Supervision. Will continue per POC as tolerated, total treatment time 15 minutes. Aly Correia, EQUIPMENT OPERATION INSTRUCTOR
--- NOTE | 2018-10-16 07:15 | NUR ---
OT NOTE Pt was seen this A.M. 1:1 for 15 minute OT session with RUBBER TIRE CURER and nursing staff present for observation only. Upon arrival pt was sitting upright in the jairon chair in the dining room. Pt identified by name and on wristband due to decreased cognition. Pt was taken out into the hallway where she completed three sit to stand transfers from chair level with use of hand rail for UE support. Pt transferred sit to stand with maxA X 2 and max verbal and tactile prompts for following commands, attention to task, and encouragement. Pt tolerated less than ten seconds at a time before sitting. Pt's breakfast tray arrived and pt was set up with maxA from [facility] staff with good carry over of providing one item at a time to decrease distractions. Pt completed self feeding with supervision. Pt was left sitting upright in the jairon chair in the dining room with body alarm on for safety and under [facility] staff supervision. Continue with rec D/C plan to return to LTC. SOHA Mcnamara/Ha
[2018-10-16 07:39] VITALS: BP 115/71
--- NOTE | 2018-10-16 08:00 | NUR ---
Treatment Plan meeting with Dr. Wheeler, RN, AT, and Product Marketing Programs Manager. Plan for discharge . Pt. will return to the [facility].
--- NOTE | 2018-10-16 08:35 | NUR ---
Dr. Lopez notified of wound care recommendations.
--- NOTE | 2018-10-16 11:00 | NUR ---
ON UNIT TO ASSESS PATIENT.
--- NOTE | 2018-10-16 11:58 | NUR ---
AM GROUP PT WAS PRESENT FOR MORNING GROUP THERAPY SOUND ASLEEP RECLINED IN A DIONICIO CHAIR. PT DID NOT WAKE DURING GROUP
--- NOTE | 2018-10-16 15:57 | NUR ---
Shift chart check completed.
--- NOTE | 2018-10-16 17:05 | NUR ---
P: AGGRESSION WITH HANDS ON CARE, MEDICATION NON COMPLIANCE. I: ONE ON ONE, REDIRECTION, ENCOURAGEMENT TO TAKE MEDICATIONS. R: SOMEWHAT EFFECTIVE; PATIENT HAS BEEN COMPAINT WITH MEDICAITONS TODAY. PATIENT IS ALERT TO SELF WITH CONFUSION. LONG/SHORT TERM MEMORY DEIFICTS NOTED. MOOD HOPELESS/HELPLESS; PATIENT LESS AGGRESSIVE WITH CARE. PATIENT'S PERIAREA IS RED/EXCORIATED FROM INCONTINENT OF BOWEL AND BLADDER. BARRIER CREAM APPIED TO AREA. NO RESPONSE TO INTERNAL STIMULI, NO VOICED STATEMENT OF HI/SI OR PAIN. Q 15 MINUTE SAFETY CHECKS. INTERACTIVE DURING HANDS ON CARE. ATTENDED MORNING GROUP, SLEPT IN [facility], NO PARTICIPATIONS. 2 PERSON ASSIST WITH ACTIVITIES OF DAILY LIVING, INCONTINENT OF BOWEL AND BLADDER. SET UP FOR MEALS, INTAKES ARE FAIR WITH ADEQUATE FLUIDS. P: CONTINUE TO MONITOR FOR AGGRESSION; PROVIDE ONE ON ONE AND REDIRECTION NEEDED.
[2018-10-16 20:12] VITALS: BP 112/70
--- NOTE | 2018-10-17 00:12 | NUR ---
NO ADVERSE BEHAVIORS NOTED. PATIENT ALERT AND ORIENTED TO SELF, CONFUSED IN ALL OTHER AREAS. MOOD STABLE, ANGRY/IRRITABLE AT TIMES. PT CALM AND COOPERATIVE, COMPLIANT WITH HS SNACK. SPEECH REMAINS NONSENSICAL PER PATIENTS BASELINE, ALL NEEDS ANTICIPATED BY STAFF. NO AGGRESSION OR AGITATION NOTED. MEDICATION COMPLIANT WITHOUT DIFFICULTY WHEN CRUSHED IN PUDDING, UNABLE TO EDUCATE DUE TO COGNITION. PT VOICES NO SI/HI AND HALLUCINATIONS, NO NOTED RESPONDING TO INTERNAL STIMULI. NO PHYSICAL COMPLAINTS VOICED. PATIENT CURRENTLY LAYING DOWN WITH EYES CLOSED. RESPIRATIONS EASY AND REGULAR, NO SIGNS OR SYMPTOMS OF DISTRESS NOTED. PLAN IS TO CONTINUE TO MONITOR MOOD AND BEHAVIORS. PRESENT REALITY AND REDIRECT NEEDED. ENCOURAGE MEDICATION COMPLIANCE AND EDUCATE. MAINTAIN Q 15 CHECKS.
--- NOTE | 2018-10-17 01:15 | NUR ---
24 HOUR CHART CHECK COMPLETED.
--- NOTE | 2018-10-17 05:45 | NUR ---
PATIENT OBSERVED ON Q 15 MIN CHECKS TO HAVE SLEPT APPROX 7 HOURS WITH NO AWAKENINGS OR SIGNS AND SYMPTOMS OF DISTRESS NOTED.
[2018-10-17 07:54] VITALS: BP 121/80
--- NOTE | 2018-10-17 08:00 | NUR ---
Treatment Plan meeting with Dr. Wheeler, RN, AT, SW and Environmental Health Officer. Plan for discharge today. Pt. will return to [facility].
--- NOTE | 2018-10-17 08:06 | NUR ---
PT REFUSED DISCHARGE PHOTOS. WITNESSED BY 2ND RN
[2018-10-17] MEDS ORDERED: MEMANTINE HCL10 MG PO (09:09)
[2018-10-17] MEDS ORDERED: EXELON13.3 MG/21 T (09:09)
[2018-10-17] MEDS ORDERED: NEUDEXT PO (09:09)
[2018-10-17] MEDS ORDERED: DIVALPROEX SOD250 MG PO (09:09)
[2018-10-17] MEDS ORDERED: NAMENDA-5 PO (09:09)
[2018-10-17] MEDS ORDERED: VITAMIN D5000 UNI1 PO (10:15)
--- NOTE | 2018-10-17 11:45 | NUR ---
AM GROUP/LUCRETIAS PT IS UNABLE TO ATTEND OR PARTICIPATE IN GROUP THERAPY AT THIS TIME DUE TO COGNITIVE IMPAIRMENT. PT IS SET TO BE DISCHARGED FROM THE UNIT THIS AFTERNOON
--- NOTE | 2018-10-17 13:29 | NUR ---
Discharge paperwork Faxed to [facility].
--- NOTE | 2018-10-17 13:57 | NUR ---
Spoke with Patient Daughter Rosita Johnson. Notified of Discharge today with pickling operator time 5:30 p.m. Pt. daughter states that the is POA and that paperwork can be mailed to the house with address on face sheet.
--- NOTE | 2018-10-17 14:46 | NUR ---
Patient is discharging to [facility] today. Follow-up will be with Dr Valdez, visiting psychiatrist. While at [facility], pt's behaviors improved. Pt was cooperative with staff. Pt continues to be pleasantly confused.
--- NOTE | 2018-10-17 14:52 | NUR ---
NURSE TO NURSE GIVEN TO DONALD AT [facility]
--- NOTE | 2018-10-17 15:35 | NUR ---
PM GROUP/LEISURE INTERESTS PT WAS PRESENT FOR AFTERNOON GROUP THERAPY SLEEPING SOUNDLY RECLINED IN A DIONICIO CHAIR. PT DID NOT AWAKEN DURING GROUP
--- NOTE | 2018-10-18 07:48 | NUR ---
PHYSICAL THERAPY CO-SIGN I approve of the Physical Therapy notes written above. MATHEW PUENTES
--- NOTE | 2018-10-18 16:05 | NUR ---
OCCUPATIONAL THERAPY CO-SIGN I approve of the Occupational Therapy notes written above. CRISPIN LANCE OTR/Ha
== END 2018-10-17 18:05 | disposition other institution (70) | DRG 883 ==
LOC: 3N 18:22
PROVIDERS: Family Medicine; Internal Medicine; ADMIT Psychiatry & Neurology Psychiatry
DX: F63.81 Intermittent explosive disorder (principal); D68.9 Coagulation defect, unspecified; G30.9 Alzheimer's disease, unspecified; I48.91 Unspecified atrial fibrillation; F41.9 Anxiety disorder, unspecified; K52.9 Noninfective gastroenteritis and colitis, unspecified; D64.9 Anemia, unspecified; E11.69 Type 2 diabetes mellitus with other specified complication; K21.9 Gastro-esophageal reflux disease without esophagitis; R56.9 Unspecified convulsions; I10 Essential (primary) hypertension; E87.8 Other disorders of electrolyte and fluid balance, not elsewhere classified; E78.1 Pure hyperglyceridemia; E55.9 Vitamin D deficiency, unspecified; F02.80 Dementia in other diseases classified elsewhere, unspecified severity, without behavioral disturbance, psychotic disturbance, mood disturbance, and anxiety; E78.5 Hyperlipidemia, unspecified; F48.2 Pseudobulbar affect; I25.10 Atherosclerotic heart disease of native coronary artery without angina pectoris; I25.2 Old myocardial infarction; Z88.8 Allergy status to other drugs, medicaments and biological substances; Z79.899 Other long term (current) drug therapy; Z79.4 Long term (current) use of insulin; Z86.73 Personal history of transient ischemic attack (TIA), and cerebral infarction without residual deficits